=== PATIENT | male | born 1985 | race Caucasian/White ===

== ENCOUNTER 2022-11-17 13:11 | Emergency (ER) | payer OTHER, BC, SELFPAY ==
[2022-11-17 13:21] VITALS: BP 114/76; PULSE 72; RESP 20; TEMP 36.1; O2SAT 98
--- NOTE | 2022-11-17 13:34 | ED.WOUNDLAC ---
HPI - Wound/Laceration General Chief Complaint: Wound/Laceration Stated Complaint: FINGER LACERATION Time Seen by Provider: 11/17/22 13:34 Source: patient, RN notes reviewed and old records reviewed Mode of arrival: ambulatory Limitations: no limitations History of Present Illness HPI narrative: 37-year-old male who presents to [facility] with complaints of laceration to his left 5th finger valadez mid aspect with noted bleeding. Patient reports that he cut his finger with box knife when item he was cutting slipped. Patient has full mobility of his affected finger with no tingling or numbness to his left 5th finger or his hand. Patient reports that his tetanus is up to date. Onset (ago): hour(s) (prior to arrival) Location: other (left 5th finger) Patient tetanus UTD: Yes Treatments prior to arrival: bandage Related Data Allergies Allergy/AdvReac Type Severity Reaction Status Date / Time No Known Allergies Allergy Unverified 11/17/22 13:32 Review of Systems Review of Systems: CONSTITUTIONAL: Denies fever, chills, or sweats. CARDIOVASCULAR: Denies chest pain, palpitations, or edema. RESPIRATORY: Denies cough or dyspnea. SKIN: Reports laceration to valadez aspect of left fifth finger middle aspect of finger MUSCULOSKELETAL: Denies musculoskeletal pain NEUROLOGIC: Denies numbness, or weakness. All systems reviewed & are unremarkable except as noted in HPI and below PMFSH Comments At time of signature, agree with nursing past medical, surgical, social and family history. There is no relevant family history pertinent to the presenting complaint Exam Narrative: GENERAL: Well-appearing, well-nourished, and in no acute distress. HEAD: Normocephalic, atraumatic. NECK: Supple.no lymphadenopathy CHEST: Clear to auscultation. No respiratory distress.SAO2 98% on room air HEART: Regular rate and rhythm. No murmur heard. Normal peripheral pulses. EXTREMITIES: Normal range of motion. No edema. SKIN: Warm, dry, no rash. 1cm linear laceration to the mid valadez aspect of left 5th finger, bleeding controlled, Patient has full mobility of his left 5th finger with brisk capillary refill to nail bed denies any tingling or numbness to his lef 5th finger or to his left hand, stong left radial pulse NEURO: No focal deficits. Alert and oriented x3. Course Course Level of Care: Express Care Visit Vital Signs Vital signs: Vital Signs Temperature 36.1 C L 11/17/22 13:21 Pulse Rate 72 11/17/22 13:21 Respiratory Rate 20 11/17/22 13:21 Blood Pressure 114/76 11/17/22 13:21 Pulse Oximetry 98 11/17/22 13:21 Oxygen Delivery Room Air 11/17/22 13:21 Temperature 36.1 C L 11/17/22 13:21 Pulse Rate 72 11/17/22 13:21 Respiratory Rate 20 11/17/22 13:21 Blood Pressure 114/76 11/17/22 13:21 Pulse Oximetry 98 11/17/22 13:21 Oxygen Delivery Room Air 11/17/22 13:21 Procedures Laceration left 5th finger: Date: 11/17/22 Time: 13:50 Site: other (left valadez 5th finger mid aspect) Side (If applicable): left Size (cm): 1 Description: linear Depth: simple, single layer Local Anesthetic: lidocaine 1% Amount of anesthesia used (mL): 4 Pre-repair: wound explored, irrigated and irrigated extensively ====== Skin Level ====== Skin layer closed with: nylon Size (cm): 4-0 Number of sutures: 5 Technique: simple, interrupted ====== Subcutaneous Layer ====== ====== Muscle Layer ====== ====== Tendon Layer ====== Dressing: Telfa, gauze and Coban dressing to left 5th finger. MDM - Wound/Laceration MDM Narrative Medical decision making narrative: Wound explored for foreign body and copious irrigation provided with no evidence of FB. Discussed the potential of retained foreign body with the patient and signs/symptoms that should prompt the patient to immediately go to the ED for reevaluation. The wound was
== END 2022-11-17 14:32 | disposition home or self-care (01) ==
PROVIDERS: Emergency Provider Registered Nurse
DX: S61.217A Laceration without foreign body of left little finger without damage to nail, initial encounter (principal); W26.0XXA Contact with knife, initial encounter
CPT/HCPCS: 12001; 99213; G0463